=== PATIENT | male | born 1955 | race Two or more races ===

== ENCOUNTER 2018-01-08 09:36 | Outpatient (CLI) | payer OTHER | END 2018-01-08 09:38 | disposition home or self-care (01) | LOC: RX STUDY 09:36 | DX: N35.8 Other urethral stricture (principal) ==

== ENCOUNTER 2018-01-12 15:11 | Outpatient (CLI) | payer OTHER | END 2018-01-12 15:18 | disposition home or self-care (01) | LOC: RAD 15:11 → RX STUDY 01-14 12:15 | DX: I10 Essential (primary) hypertension (principal) ==